=== PATIENT | female | born 1950 | race Caucasian/White ===

== ENCOUNTER 2016-11-12 08:53 | Emergency (ER) | payer MEDICAID ==
[2016-11-12] MEDS ORDERED: IOHEXOL 300MG/ML 100 ML VIAL IVP ONE (09:41)
--- NOTE | 2016-11-12 09:43 | ED Physician Chart ---
Chief Complaint/HPI - Patient Information Date Seen:: 11/12/16 Time Seen:: 09:17 Chief Complaint:: bloody urination History of Present Illness:: THIS IS A 66 YO FEMALE WITH RECURRENT HEMATURIA WHICH STARTED AGAIN A WEEK AGO. SHE ALSO HAS PAIN IN THE BLADDER AREA OF THE ABDOMEN. SHE DENIES FEVER AND CONSTIPATION. SHE HAS CURRENTLY BEEN ON NITROFURANTOIN FOR THREE DAYS GIVEN TO HER BY HER PMD FOR THE HEMATURIA. SHE IS AWAITING A CONSULTATION APPROVAL TO SEE A UROLOGIST. THE SURGERY SHE HAS HAD IS A TUBALIGATION. THE ONLY MEDICAL PROBLEM SHE ADMITS TO IS HYPERTENSION. Allergies:: Allergies Allergy/AdvReac Type Severity Reaction Status Date / Time sulfamethoxazole Allergy Verified 11/12/16 09:12 [From Bactrim] trimethoprim [From Bactrim] Allergy Verified 11/12/16 09:12 Vitals:: Vital Signs - 8 hr 11/12/16 09:12 Temp 97.7 F HR 72 RR 16 BP 149/69 O2 Sat % 98 Historian:: Patient, Family Member, Medical Records Review:: Nurse's Note Reviewed Review of Systems - Review of Systems General/Constitutional: No fever, No chills, No weight loss, No weakness, No diaphoresis, No edema, No loss of appetite Skin: No skin lesions, No rash, No bruising Head: No headache, No light-headedness Eyes: No loss of vision, No pain, No diplopia ENT: No earache, No nasal drainage, No sore throat, No tinnitus Neck: No neck pain, No swelling, No thyromegaly, No stiffness, No mass noted Cardio Vascular: No chest pain, No palpitations, No PND, No orthopnea, No edema Pulmonary: No SOB, No cough, No sputum, No wheezing GI: No nausea, No vomiting, No diarrhea, No pain, No melena, No hematochezia, No constipation, No hematemesis G/U: Dysuria, Frequency, Hematuria Musculoskeletal: No bone or joint pain, No back pain, No muscle pain Endocrine: No polyuria, No polydipsia Psychiatric: No prior psych history, No depression, No anxiety, No suicidal ideation Hematopoietic: No bruising, No lymphadenopathy Allergic/Immuno: No urticaria, No angioedema Neurological: No syncope, No focal symptoms, No weakness, No paresthesia, No headache, No seizure, No dizziness, No confusion, No vertigo Past Medical History - Past Medical History Obtainable: Yes Past Medical History: HTN Family History: None Social History: Non Smoker, No Alcohol, No Drug Use Surgical History: other (TUBAL) Family Medical History - Family Member Mother History Unknown: Yes Physical Exam - Physical Examination General/Constitutional: Awake, Well-developed, well-nourished, Alert, No distress, GCS 15, Non-toxic appearing, Ambulatory Head: Atraumatic Eyes: Lids, conjuctiva normal, PERRL, EOMI Skin: Nl inspection, No rash, No skin lesions, No ecchymosis, Well hydrated, No lymphadenopathy ENMT: External ears, nose nl, Nasal exam nl, Lips, teeth, gums nl Neck: Nontender, Full ROM w/o pain, No JVD, No nuchal rigidity, No bruit, No mass, No stridor Respiratory: Nl effort/Exclusion, Clear to Auscultation, No Wheeze/Rhonchi/Rales Cardio Vascular: RRR, No murmur, gallop, rubs, NL S1 S2 GI: No tenderness/rebounding/guarding, No organomegaly, No hernia, Normal BS's, Nondistended, No mass/bruits, No McBurney tenderness : No CVA tenderness Other comments:: BLADDER AREA TENDERNESS ON PALPATATION Extremities: No tenderness or effusion, Full ROM, normal strength in all extremities, No edema, Normal digits & nails Neuro/Psych: Alert/oriented, DTR's symmetric, Normal sensory exam, Normal motor strength, Judgement/insight normal, Mood normal, Normal gait, No focal deficits Misc: normal gait, Normal back, No paraspinal tenderness Labs/Radiology/EKG Results - Radiology Results Results: ct scan of the abdomen and pelvis = lung cyst, renal cyst, and liver cyst. ED Septic Shock - . Is Septic Shock (SBP<90, OR Lactate>4 mmol\L) present?: No - <6hrs of presentation: Vital Signs: Vital Signs - 8 hr 11/12/16 09:12 Temp 97.7 F HR 72 RR 16 BP 149/69 O2 Sat % 98 Reassessment (Disposition) - Reassessment Reassessment Condition:: Improved - Diagnosis Diagnosis:: HEMATURIA URINARY INFECTION RENAL CYST - Aftercare/Follow up Instructions Aftercare/Follow-Up Instructions:: Counseled pt regarding lab results/diagnosis & need follow up, Refer to Discharge Instructions, Counseled pt & family regarding lab results/diagnosis & need follow up - Patient Disposition Discharge/Transfer:: Home Condition at Disposition:: Improved ED Discharge Plan - Patient Disposition Admit/Discharge/Transfer: PT DISCHARGED HOME Condition at Disposition: Improved Prescriptions: Azithromycin [Zithromax] 250 mg PO DAILY #0 tab Ciprofloxacin [Cipro*] 250 mg PO BID #20 pdr
[2016-11-12 10:06] LABS: INR 1.05 (0.5-1.4); PROTHROMBIN TIME (TEST) 10.4 SECONDS (9.5-11.5)
[2016-11-12 10:09] LABS: ALB/GLOB RATIO 1.3 (1.0-1.8); ALKALINE PHOSPHATASE 71 U/L (34-104); ANION GAP 7.3 (7.0-16.0); BILIRUBIN,TOTAL 0.4 mg/dL (0.3-1.0); BUN - UREA NITROGEN 15 mg/dL (7-25); BUN/CREATININE RATIO 21.4; CALCIUM SERUM 8.5 mg/dL (8.6-10.3); CARBON DIOXIDE 22.4 mEq/L (21.0-31.0); CHLORIDE 107 mEq/L (98-107); CHOLESTEROL 165 mg/dL (<200); CREATININE - SERUM 0.7 mg/dL (0.6-1.2); GLUCOSE 114 mg/dL (70-105); SGOT 26 U/L (13-39); SGPT/ALT 17 U/L (7-52); SODIUM SERUM 133 mEq/L (136-145); TRIGLYCERIDES 166 mg/dL (<150)
[2016-11-12 10:14] LABS: POTASSIUM SERUM 3.7 mEq/L (3.5-5.1)
[2016-11-12 10:17] LABS: URINE BILIRUBIN SMALL (NEGATIVE); URINE BLOOD LARGE (NEGATIVE); URINE COLOR RED; URINE GLUCOSE (UA) NEGATIVE (NEGATIVE); URINE KETONE NEGATIVE (NEGATIVE); URINE PROTEIN >300 mg/dL (NEGATIVE)
[2016-11-12 10:18] LABS: % BASOPHILS 0.4 % (0.0-2.0); % EOSINOPHILS 2.8 % (0.0-5.0); % LYMPHOCYTES 16.8 % (20.0-50.0); % MONOCYTES 5.6 % (2.0-10.0); % NEUTROPHILS 74.4 % (40.0-80.0); HEMATOCRIT 33.6 % (35.0-45.0); HEMOGLOBIN 11.3 gm/dL (11.7-16.1); MEAN CELL VOLUME 85.7 fl (81-100); MEAN CORPUSCULAR HEMOGLOBIN 28.9 pg (27.0-31.0); MEAN CORPUSCULAR HGB CONC 33.7 pg (28.0-36.0); MEAN PLATELET VOLUME 9.7 fl; NEUTROPHILE ABSOLUTE 9.9 Th/cmm (1.8-8.0); PLATELET COUNT 193 Th/cmm (150-400); RED BLOOD COUNT 3.92 Mil/cmm (3.80-5.20); RED CELL DISTRIBUTION WIDTH 12.6 % (11.5-20.0); WHITE BLOOD COUNT 13.3 Th/cmm (4.8-10.8)
[2016-11-12] MEDS ORDERED: Lactated Ringer 1,000 ML IV ONE (10:18)
[2016-11-12 11:23] LABS: URINE BACTERIA OCCASIONAL /hpf (NONE SEEN); URINE EPITHELIAL CELLS FEW /lpf (FEW); URINE RBC >100 /hpf (0-5)
--- NOTE | 2016-11-12 12:21 | Diagnostic Imaging Report ---
CT abdomen and pelvis with intravenous contrast Indication: Pain, bladder problems, bleeding Comparison: None, Technique: Axial images were obtained from the lung bases to the bilateral proximal femurs with IV contrast. Reconstructions were made. Total DLP 634, CTD I 20 Findings: Small 2 to 3 mm nodular opacities of the lung bases are noted. There is a subcentimeter low-density lesion within the posterior right lobe of the liver, too small to characterize but possibly representing a cyst. No radiopaque gallstones identified. No focal splenic or pancreatic lesions. No focal adrenal lesions. 1.8 cm right superior pole renal cyst is noted. Additional subcentimeter low-density lesion of the left kidney is noted to small to characterize. No hydronephrosis. Bilateral urinary bladder jets are noted. No obvious focal bladder abnormality identified. Moderate stool is seen. No evidence of bowel obstruction. No appendicitis. No free air or free fluid. There is high density seen along the cervix and vaginal region with minimal high density seen along the posterior aspect of the uterus which likely represents contrast. Degenerative changes of spine and pelvis are noted. Rudimentary ribs are seen at T12. There is also 2-3 mm anterolisthesis of L4 on L5 likely due to facet arthropathy. A vertebral body hemangioma seen at L5. IMPRESSION: No obvious focal bladder abnormalities identified. If indicated cystoscopy may also be obtained for further assessment. Small amount of high density/excreted contrast seen within the cervix and vaginal region. There also appears to be small amount of high density in excreted contrast seen along the posterior uterine region. Findings may be due to incontinence and reflux of contrast. No obvious communication is identified. Please correlate clinically. If indicated urological consultation may be obtained. Right renal cyst. Small to moderate-sized hiatal hernia 2-3 nodular opacities of the lung bases, nonspecific, and may be due to postinfectious or postinflammatory etiology. Please correlate with old exams. Consider follow-up assessment in 12 months if indicated. Please refer to above report for details.
== END 2016-11-12 13:18 | disposition home or self-care (01) ==
LOC: ER 08:53
DX: N39.0 Urinary tract infection, site not specified (principal); R31.9 Hematuria, unspecified; N28.1 Cyst of kidney, acquired; I10 Essential (primary) hypertension; Z88.2 Allergy status to sulfonamides
CPT/HCPCS: 99285; 96361; 96374; 96375; 74177; 84484; 36415; 84443; 86592; 85025; 85610; 85730; 81001; 80053; 80061; J1885; J0696; Q9967

== ENCOUNTER 2017-09-17 11:13 | Emergency (ER) | payer MEDICAID ==
--- NOTE | 2017-09-17 11:39 | ED Physician Chart ---
ED Chief Complaint/HPI - Patient Information Date Seen:: 09/17/17 Time Seen:: 11:38 Chief Complaint:: Fever, sore throat History of Present Illness:: 66 yo female developed cough, dizziness and sore throat for 5 days. At ER, the patient had slight fever 100.3 and she reported bilateral ear pain. Allergies:: Allergies Allergy/AdvReac Type Severity Reaction Status Date / Time sulfamethoxazole Allergy Verified 11/12/16 09:12 [From Bactrim] trimethoprim [From Bactrim] Allergy Verified 11/12/16 09:12 Vitals:: Vital Signs - 8 hr 09/17/17 11:21 Temp 100.3 F HR 95 RR 16 BP 135/91 O2 Sat % 97 ED Review of Systems - Review of Systems General/Constitutional: Fever Skin: No bruising Head: No headache Eyes: No pain ENT: Earache Neck: No neck pain Cardio Vascular: No chest pain Pulmonary: Cough GI: No nausea, No vomiting G/U: Dysuria Musculoskeletal: No bone or joint pain ED Past Medical History - Past Medical History Past Medical History: HTN, Asthma/COPD, Thyroid disorder (Hypothyroidism), Other (frequent UTI) Social History: Non Smoker, No Alcohol, No Drug Use Surgical History: None Family Medical History - Family Member Mother History Unknown: Yes ED Physical Exam - Physical Examination General/Constitutional: Awake, Alert Head: Atraumatic Eyes: PERRL, EOMI Skin: No ecchymosis ENMT: TM canals nl, Nasal exam nl, Oropharynx nl, Tonsils nl Neck: No nuchal rigidity Respiratory: Clear to Auscultation, No Wheeze/Rhonchi/Rales Cardio Vascular: RRR, No murmur, gallop, rubs, NL S1 S2 Other GI comments:: epigastric tenderness Other Extremities comments:: bilateral pedal edema 1+ Neuro/Psych: No focal deficits ED Assessment - Assessment General Assessment: URI UTI Hypertension Hypothyroidism Asthma Epigastric pain Critical Care Time: 30 min Excludes all billable procedures: Yes This condition life threatening/high prob of deterioration: No Assessment/Comments:: CBC, CMP, UA, rapid strep test CXR Lozenge Pantoprazole DeoNeb nebulizing Rocephin D/c home Azithromycin 250 Qd F/u PCP or return to ER if symptoms worsen ED Septic Shock - . Is Septic Shock (SBP<90, OR Lactate>4 mmol\L) present?: No - <6hrs of presentation: Vital Signs: Vital Signs - 8 hr 09/17/17 11:21 Temp 100.3 F HR 95 RR 16 BP 135/91 O2 Sat % 97 ED Reassessment (Disposition) - Reassessment Reassessment Condition:: Improved - Aftercare/Follow up Instructions Aftercare/Follow-Up Instructions:: Counseled pt regarding lab results/diagnosis & need follow up, Refer to Discharge Instructions - Patient Disposition Discharge/Transfer:: Home ED Discharge Plan - Patient Disposition Admit/Discharge/Transfer: PT DISCHARGED HOME Condition at Disposition: Improved Prescriptions: Azithromycin [Zithromax] 250 mg PO DAILY #6 tab Instructions: Urinary Tract Infection, Upper Respiratory Infection, Adult, Easy -to-Read Accepting Physician: Bradley Su [Courtesy] -
[2017-09-17] MEDS ORDERED: Albuterol/Ipratropium Neb 3 ML AERS HHN ONE ×2 (11:51→12:29)
[2017-09-17 12:05] LABS: URINE MICROSCOPIC INDICATED? YES; URINE SOURCE RANDOM
[2017-09-17 12:10] LABS: URINE BILIRUBIN NEGATIVE (NEGATIVE); URINE BLOOD LARGE (NEGATIVE); URINE GLUCOSE (UA) NEGATIVE (NEGATIVE); URINE KETONE NEGATIVE (NEGATIVE); URINE LEUKOCYTE ESTERASE LARGE (NEGATIVE); URINE NITRATE NEGATIVE (NEGATIVE); URINE PROTEIN TRACE mg/dL (NEGATIVE); URINE UROBILINOGEN 0.2 E.U./dL (0.2 - 1.0)
[2017-09-17 12:16] LABS: % BASOPHILS 0.6 % (0.0-2.0); % EOSINOPHILS 0.8 % (0.0-5.0); % LYMPHOCYTES 17.4 % (20.0-50.0); % MONOCYTES 13.8 % (2.0-10.0); % NEUTROPHILS 67.4 % (40.0-80.0); EOSINOPHILE ABSOLUTE 0.1 Th/cmm (0.1-0.4); HEMOGLOBIN 12.6 gm/dL (12-16); LYMPHOCYTE ABSOLUTE 1.4 Th/cmm (1.5-3.0); MEAN CELL VOLUME 87.5 fl (81-100); MEAN CORPUSCULAR HEMOGLOBIN 29.2 pg (27.0-31.0); MEAN CORPUSCULAR HGB CONC 33.4 pg (28.0-36.0); MEAN PLATELET VOLUME 8.8 fl; MONOCYTE ABSOLUTE 1.1 Th/cmm (0.3-1.0); NEUTROPHILE ABSOLUTE 5.3 Th/cmm (1.8-8.0); PLATELET COUNT 204 Th/cmm (150-400); RED CELL DISTRIBUTION WIDTH 12.5 % (11.5-20.0)
[2017-09-17 12:18] LABS: WHITE BLOOD COUNT 7.9 Th/cmm (4.8-10.8)
[2017-09-17 12:19] LABS: HEMATOCRIT 37.7 % (41.0-60)
[2017-09-17 12:26] LABS: URINE CLARITY HAZY (CLEAR); URINE COLOR YELLOW
[2017-09-17 12:29] LABS: ALB/GLOB RATIO 1.4 (1.0-1.8); ALBUMIN 4.2 gm/dL (3.7-5.3); ALKALINE PHOSPHATASE 80 U/L (34-104); ANION GAP 11.8 (7.0-16.0); BILIRUBIN,TOTAL 0.3 mg/dL (0.3-1.0); BUN - UREA NITROGEN 15 mg/dL (7-25); CALCIUM SERUM 8.9 mg/dL (8.6-10.3); CARBON DIOXIDE 24.9 mEq/L (21.0-31.0); CHLORIDE 99 mEq/L (98-107); CREATININE - SERUM 0.6 mg/dL (0.6-1.2); GFR AFRICAN-AMERICAN > 60.0 ml/min (>90); GFR NON AFRICAN-AMERICAN > 60.0 ml/min; GLUCOSE 132 mg/dL (70-105); POTASSIUM SERUM 3.7 mEq/L (3.5-5.1); SGOT 35 U/L (13-39); SGPT/ALT 29 U/L (7-52); SODIUM SERUM 132 mEq/L (136-145); TOTAL PROTEIN,SERUM 7.2 gm/dL (6.0-8.3)
[2017-09-17 12:33] LABS: URINE BACTERIA 2+ /hpf (NONE SEEN); URINE EPITHELIAL CELLS FEW /lpf (FEW)
[2017-09-17] MEDS ORDERED: cefTRIAXone 1 GM in Sodium Chloride 0.9% 50 ML IV ONE (13:04)
[2017-09-17] MEDS ORDERED: guaiFENesin 200 MG/10 ML UDC PO ONE (17:02)
[2017-09-17] MEDS ORDERED: guaiFENesin 200 MG/10 ML UDC ONE (17:07)
--- NOTE | 2017-09-18 09:53 | Diagnostic Imaging Report ---
Portable chest x-ray Time: 1205 hours History: Cough Allowing for portable technique the heart size is normal. No focal pulmonary parenchymal processes. No hilar or mediastinal abnormalities. Impression: No acute abnormalities.
== END 2017-09-17 17:24 | disposition home or self-care (01) ==
LOC: ER 11:13
DX: J06.9 Acute upper respiratory infection, unspecified (principal); N39.0 Urinary tract infection, site not specified; I10 Essential (primary) hypertension; E03.9 Hypothyroidism, unspecified; J45.909 Unspecified asthma, uncomplicated; R10.13 Epigastric pain; J44.9 Chronic obstructive pulmonary disease, unspecified; Z88.2 Allergy status to sulfonamides; Z88.8 Allergy status to other drugs, medicaments and biological substances
CPT/HCPCS: 99285; 96365; 96375; 94640; 71010; 36415; 87070; 87081; 85025; 81001; 80053; C9113; J0696; 87086-90; Z7502; Z7610

== ENCOUNTER 2018-12-28 18:42 | Emergency (ER) | payer SELFPAY ==
--- NOTE | 2018-12-28 19:15 | ED Physician Chart ---
ED Chief Complaint/HPI - Patient Information Date Seen:: 12/28/18 Time Seen:: 19:05 Chief Complaint:: nausea, dizziness and headache History of Present Illness:: Patient developed nausea, headache and dizziness yesterday. She took her blood pressure at [facility] pharmacy this evening and it was 217/96. Patient denies chest pain. She does have mild shortness of breath. She states she is urinating about every 10 minutes for last 3 days. Allergies:: Allergies Allergy/AdvReac Type Severity Reaction Status Date / Time sulfamethoxazole Allergy Verified 12/28/18 18:53 [From Bactrim] trimethoprim [From Bactrim] Allergy Verified 12/28/18 18:53 Vitals:: Vital Signs - 8 hr 12/28/18 18:45 Temp 97.4 F HR 73 RR 16 BP 184/84 O2 Sat % 98 Historian:: Patient Review:: Nurse's Note Reviewed ED Review of Systems - Review of Systems General/Constitutional: No fever, No chills Skin: No skin lesions Head: Headache, Light headed Eyes: No loss of vision ENT: No earache, No nasal drainage, No sore throat Neck: No neck pain, No swelling, No thyromegaly, No stiffness Cardio Vascular: No chest pain Pulmonary: SOB GI: Nausea, No vomiting, No diarrhea G/U: No dysuria Musculoskeletal: No bone or joint pain Endocrine: No polyuria, No polydipsia Psychiatric: No prior psych history, No depression Hematopoietic: No bruising Allergic/Immuno: No urticaria Neurological: No syncope, No focal symptoms ED Past Medical History - Past Medical History Past Medical History: HTN, Thyroid disorder, Other (anemia from bleeding hemorrhoids; hypothyroidism) Family History: HTN Social History: Non Smoker, No Alcohol Surgical History: None Medication: Reviewed Family Medical History - Family Member Mother History Unknown: Yes ED Labs/Radiology/EKG Results - Lab Results Results: Laboratory Results WBC 8.7 Th/cmm (4.8-10.8) 12/28/18 19:25 RBC 4.22 Mil/cmm (3.80-5.20) 12/28/18 19:25 Hgb 12.3 gm/dL (12-16) 12/28/18 19:25 Hct 37.1 % (41.0-60) L 12/28/18 19:25 MCV 88.1 fl (81-100) 12/28/18 19:25 MCH 29.1 pg (27.0-31.0) 12/28/18 19:25 MCHC Differential 33.0 pg (28.0-36.0) 12/28/18 19:25 RDW 12.1 % (11.5-20.0) 12/28/18 19:25 Plt Count 235 Th/cmm (150-400) 12/28/18 19:25 MPV 8.1 fl 12/28/18 19:25 Neutrophils % 53.2 % (40.0-80.0) 12/28/18 19: Lymphocytes % 36.8 % (20.0-50.0) 12/28/18: Monocytes % 6.7 % (2.0-10.0) 12/28/18: Eosinophils % 2.6 % (0.0-5.0) 12/28/18: Basophils % 0.7 % (0.0-2.0) 12/28/18 19:25 Glucose 111 mg/dL (70-105) H 12/28/18 19:25 POC Glucose 119 MG/DL (70 - 105) H 12/28/18 19:24 Laboratory Results WBC 8.7 Th/cmm (4.8-10.8) 12/28/18: RBC 4.22 Mil/cmm (3.80-5.20) 12/28/18 19:25 Hgb 12.3 gm/dL (12-16) 12/28/18:25 Hct 37.1 % (41.0-60) L 12/28/18 19:25 MCV 88.1 fl (81-100) 12/28/18 19:25 MCH 29.1 pg (27.0-31.0) 12/28/18: MCHC Differential 33.0 pg (28.0-36.0) 12/28/18:25 RDW 12.1 % (11.5-20.0) 12/28/18 19:25 Plt Count 235 Th/cmm (150-400) 12/28/18 19:25 MPV 8.1 fl 12/28/18 19:25 Neutrophils % 53.2 % (40.0-80.0) 12/28/18 19:25 Lymphocytes % 36.8 % (20.0-50.0) 12/28/18 19:25 Monocytes % 6.7 % (2.0-10.0) 12/28/18 19:25 Eosinophils % 2.6 % (0.0-5.0) 12/28/18 19:25 Basophils % 0.7 % (0.0-2.0) 12/28/18 19:25 Glucose 111 mg/dL (70-105) H 12/28/18 19:25 POC Glucose 119 MG/DL (70 - 105) H 12/28/18 19:24 Laboratory Results WBC 8.7 Th/cmm (4.8-10.8) 12/28/18 19:25 RBC 4.22 Mil/cmm (3.80-5.20) 12/28/18 19:25 Hgb 12.3 gm/dL (12-16) 12/28/18 19:25 Hct 37.1 % (41.0-60) L 12/28/18 19:25 MCV 88.1 fl (81-100) 12/28/18 19:25 MCH 29.1 pg (27.0-31.0) 12/28/18 19:25 MCHC Differential 33.0 pg (28.0-36.0) 12/28/18 19:25 RDW 12.1 % (11.5-20.0) 12/28/18 19:25 Plt Count 235 Th/cmm (150-400) 12/28/18 19:25 MPV 8.1 fl 12/28/18 19:25 Neutrophils % 53.2 % (40.0-80.0) 12/28/18 19:25 Lymphocytes % 36.8 % (20.0-50.0) 12/28/18 19:25 Monocytes % 6.7 % (2.0-10.0) 12/28/18 19:25 Eosinophils % 2.6 % (0.0-5.0) 12/28/18 19:25 Basophils % 0.7 % (0.0-2.0) 12/28/18 19:25 Glucose 111 mg/dL (70-105) H 12/28/18 19:25 POC Glucose 119 MG/DL (70 - 105) H 12/28/18 19:24 Urine Color STRAW 12/28/18 21:00 Urine Clarity CLEAR (CLEAR) 12/28/18 21:00 Urine pH 7.5 (4.6 - 8.0) 12/28/18 21:00 Ur Specific [place] <= 1.005 (1.005-1.030) 12/28/18 21:00 Urine Protein NEGATIVE mg/dL (NEGATIVE) 12/28/18 21:00 Urine Glucose (UA) NEGATIVE mg/dL (NEGATIVE) 12/28/18 21:00 Urine Ketones NEGATIVE mg/dL (NEGATIVE) 12/28/18 21:00 Urine Blood SMALL (NEGATIVE) H 12/28/18 21:00 Urine Nitrate NEGATIVE (NEGATIVE) 12/28/18 21:00 Urine Bilirubin NEGATIVE (NEGATIVE) 12/28/18 21:00 Urine Urobilinogen 0.2 E.U./dL (0.2 - 1.0) 12/28/18 21:00 Ur Leukocyte Esterase NEGATIVE (NEGATIVE) 12/28/18 21:00 - EKG Interpretations Rate & Rhythm: normal sinus rhythm with a rate of 66 Kimball: normal axis ED Septic Shock - . Is Septic Shock (SBP<90, OR Lactate>4 mmol\L) present?: No - <6hrs of presentation: Vital Signs: Vital Signs - 8 hr 12/28/18 18:45 Temp 97.4 F HR 73 RR 16 BP 184/84 O2 Sat % 98 ED Reassessment (Disposition) - Reassessment Reassessment:: Blood pressure 175/88 at 2158. At 2208 patient states her dizziness is gone but she complains of headache. Almost all hypertension is asymptomatic so I think the patient's dizziness and headache aren't related to her high blood pressure. Since the dizziness improved after Antivert 25 mg given orally in the emergency room patient will be prescribed 20 to take 1 3 times a day Reassessment Condition:: Improved - Diagnosis Diagnosis:: Hypertension; nonspecific cephalgia; benign positional vertigo - Aftercare/Follow up Instructions Aftercare/Follow-Up Instructions:: Refer to Discharge Instructions - Patient Disposition Discharge/Transfer:: Home Condition at Disposition:: Stable, Improved
[2018-12-28 19:40] LABS: % BASOPHILS 0.7 % (0.0-2.0); % EOSINOPHILS 2.6 % (0.0-5.0); % LYMPHOCYTES 36.8 % (20.0-50.0); % MONOCYTES 6.7 % (2.0-10.0); % NEUTROPHILS 53.2 % (40.0-80.0); BASOPHILE ABSOLUTE 0.1 Th/cumm (0-0.2); EOSINOPHILE ABSOLUTE 0.2 Th/cmm (0.1-0.4); HEMATOCRIT 37.1 % (41.0-60); HEMOGLOBIN 12.3 gm/dL (12-16); LYMPHOCYTE ABSOLUTE 3.2 Th/cmm (1.5-3.0); MEAN CELL VOLUME 88.1 fl (81-100); MEAN CORPUSCULAR HEMOGLOBIN 29.1 pg (27.0-31.0); MEAN PLATELET VOLUME 8.1 fl; MONOCYTE ABSOLUTE 0.6 Th/cmm (0.3-1.0); NEUTROPHILE ABSOLUTE 4.6 Th/cmm (1.8-8.0); PLATELET COUNT 235 Th/cmm (150-400); RED BLOOD COUNT 4.22 Mil/cmm (3.80-5.20); RED CELL DISTRIBUTION WIDTH 12.1 % (11.5-20.0); WHITE BLOOD COUNT 8.7 Th/cmm (4.8-10.8)
[2018-12-28 21:12] LABS: URINE SOURCE MIDSTREAM
[2018-12-28 21:21] LABS: URINE BILIRUBIN NEGATIVE (NEGATIVE); URINE BLOOD SMALL (NEGATIVE); URINE GLUCOSE (UA) NEGATIVE (NEGATIVE); URINE KETONE NEGATIVE (NEGATIVE); URINE LEUKOCYTE ESTERASE NEGATIVE (NEGATIVE); URINE MICROSCOPIC INDICATED? YES; URINE NITRATE NEGATIVE (NEGATIVE); URINE PH 7.5 (4.6 - 8.0); URINE PROTEIN NEGATIVE (NEGATIVE); URINE UROBILINOGEN 0.2 E.U./dL (0.2 - 1.0)
[2018-12-28 21:49] LABS: URINE CLARITY CLEAR (CLEAR); URINE COLOR STRAW
[2018-12-28 22:12] LABS: URINE RBC 0-2 /hpf (0-5)
[2018-12-28 22:13] LABS: URINE BACTERIA NONE SEEN /hpf (NONE SEEN); URINE EPITHELIAL CELLS RARE /lpf (FEW); URINE WBC NONE SEEN /hpf (0-5)
== END 2018-12-28 22:32 | disposition home or self-care (01) ==
LOC: ER 18:42
DX: I10 Essential (primary) hypertension (principal); H81.10 Benign paroxysmal vertigo, unspecified ear; R51 Headache; E07.9 Disorder of thyroid, unspecified; Z88.1 Allergy status to other antibiotic agents; Z88.2 Allergy status to sulfonamides
CPT/HCPCS: 36415-UA; 81001-TC; 82947-TC; 82948-90; 85025-TC; 93005; Z7502; Z7610